=== PATIENT | male | born 1960 | race Caucasian/White ===

== ENCOUNTER → 2017-05-09 | Outpatient (CLI) | payer OTHER ==
[~2017-05-09] MED LIST: ALLEGRA PO; LEXAPRO PO; ZOCOR PO
--- NOTE | ~2017-05-09 | CR97 ---
[facility] A Service of [facility] RADIOLOGY TEXT RESULTS PATIENT: KLEBER FLANNERY LOCATION: [facility] : 60 UNIT #: [id number] AGE: [address]: Fritz Ludwig III, MD SEX: M ORDER DR: [id number] [facility] [address] [facility]. [place], [place] [address] [id number] O MR#: [id number] Acc #: [id number] NAME: KLEBER FLANNERY : 1960 SEX: M STUDY DATE/TIME: 05/09/2017 12:22 UNIT: [facility] ROOM: STUDY DESCRIPTION: CR Esophagram Attending Physician: Fritz Ludwig III, M.D. Referring Physician: Fritz Ludwig III, M.D. Ordering Physician: Fritz Ludwig III, M.D. Primary Care Physician: No Primary Care Physician MEDICAL IMAGING REPORT This report is preliminary unless electronic signature is present EXAM Esophagram, 05/09. INDICATIONS Dysphagia over the last week. Burning sensation in the esophagus. History of gastric band placement 8 years ago. FINDINGS Strickler Attendant upright view demonstrates a gastric band in place with a phi angle of about 26 degrees. Bowel gas pattern is normal. Single contrast esophagram was performed. There are tertiary contractions in the distal third of the esophagus. There is a small pouch above the gastric band as expected. There is free flow of contrast through the band at this time. Exam is otherwise unremarkable. Thirty-six images were obtained. Fluoro time is 0.8 minutes. IMPRESSION 1. Gastric band does appear to be in normal position with a small pouch above it. There is dysmotility in the distal esophagus. There is no obstruction to the flow of barium into the stomach. Dictated by... Mac Martin Jr., M.D. THIS IS AN ELECTRONICALLY VERIFIED REPORT Mac Martin Jr., M.D. at 05/09/2017 4:48 PM MELANIE/clau TD: 05/09/2017 16:34 JOB #: [id number] [place] [address] A Service of [facility] RADIOLOGY TEXT RESULTS PATIENT: KLEBER FLANNERY LOCATION: [facility] #: [id number] : 60 UNIT #: [id number] AGE: [address]: Fritz Ludwig III, MD SEX: M ORDER DR: MEDICAL IMAGING REPORT Page 1 of 1 COPY
== END | disposition home or self-care (01) ==
LOC: CRAD 11:44
DX: R13.10 Dysphagia, unspecified (principal); K22.4 Dyskinesia of esophagus; Z98.84 Bariatric surgery status
CPT/HCPCS: 74220